=== PATIENT | female | born 2000 | race Caucasian/White ===

== ENCOUNTER 2021-08-28 14:36 | Emergency (ER) | payer OTHER ==
[2021-08-28] MEDS ORDERED: diphenhydrAMINE 25 MG CAP ONE (16:19)
[2021-08-28] MEDS ORDERED: predniSONE 20 MG TAB ONE (16:19)
[2021-08-28] MEDS ORDERED: Famotidine 20 MG TAB ONE (16:20)
== END 2021-08-28 17:28 | disposition home or self-care (01) ==
LOC: CSHERS 14:36
DX: L25.9 Unspecified contact dermatitis, unspecified cause (principal)
CPT/HCPCS: 99282; J7512